=== PATIENT | male | born 1995 | race Hispanic/Latino ===

== ENCOUNTER 2019-10-03 15:06 | Emergency (ER) | payer SELFPAY ==
[2019-10-03] MEDS ORDERED: diphenhydrAMINE 50 MG/ML VIAL ONE (18:56)
[2019-10-03] MEDS ORDERED: Prochlorperazine 10 MG/2 ML VIAL IVP SCH (19:00)
== END 2019-10-03 20:39 | disposition home or self-care (01) ==
LOC: ERS 15:06
DX: R51 Headache (principal)
CPT/HCPCS: 96361; 96374; 96375; J0780; J1200

== ENCOUNTER 2020-05-11 16:22 | Emergency (ER) | payer SELFPAY | END 2020-05-11 17:16 | disposition home or self-care (01) | LOC: ERS 16:22 | DX: K64.4 Residual hemorrhoidal skin tags (principal); K64.8 Other hemorrhoids | CPT/HCPCS: 99283 ==